=== PATIENT | female | born 1975 | race African-American/Black ===

== ENCOUNTER → 2018-05-04 | Outpatient (CLI) | payer OTHER ==
--- NOTE | 2018-05-14 16:40 | REP ---
BILATERAL MAMMOGRAM: Bilateral mammography is performed in the MLO and CC projections and compared to prior study of 10/06/2016. There is a history of breast cancer in paternal grandmother over age 50. Janine Hui lifetime risk of breast cancer is 16.1%. There is moderately dense fibroglandular tissue diffusely in a heterogeneous pattern. There appears to be a 6 mm well-circumscribed nodule near the left nipple, just inferior to it. No other definite mass is seen. No clustered microcalcifications are seen. IMPRESSION: Suspect well-circumscribed nodule in the left breast just below the nipple anteriorly measuring about 6 mm in diameter. Recommend spot compression views and ultrasound to further evaluate. ACR 0 incomplete. BI-RADS/ACR category 0 mammogram, incomplete. Additional imaging and/or prior mammograms for comparison. This mammogram was interpreted with the aid of an FDA-approved computer-aided detection system. The patient states she/he has not had a clinical breast exam in over a year. The patient letter being requested is M0. Electronically Signed by Eugenio Feng MD 05/20/2018 11:10 P
== END ==
LOC: M RAD 13:48
PROVIDERS: ATTEND Physician Assistant Medical
DX: R92.2 Inconclusive mammogram (principal); Z80.3 Family history of malignant neoplasm of breast

== ENCOUNTER → 2018-06-03 | Outpatient (CLI) | payer OTHER ==
--- NOTE | 2018-06-03 13:37 | REP ---
Digital diagnostic unilateral left breast mammography with CAD: History: Screening mammography from May 04, 2018 was BIRADS category zero because of a well-circumscribed nodule in the subareolar zone of the left breast on mammography. Comparison is also made with the October 06, 2016 prior study. Technologist notes that there is a skin tag in the subareolar region of the left breast and this was marked with a skin marker. The patient relates that this skin tag has always been present. Mammographic findings: The well circumscribed 6 mm nodule seen on the May 04, 2018 prior mammography is due to the above mentioned skin tag and is seen within the skin tag meter operator on all three of the magnified focal spot compression CC, ML and true MLO views. This is felt to be a benign dermal lesion. No other suspicious mammographic finding. Impression: BIRADS category II benign findings. Repeat screening mammography is recommended bilaterally in 1 year. This mammogram was interpreted with the aid of an FDA-approved computer-aided detection system. The patient states that she has not had a clinical breast exam in over a year. The patient letter being requested is M1. This patient's estimated Tyrer-Cuzick lifetime risk assessment for the breast cancer is 16.1 %. Electronically Signed by Franko Lamb MD 06/03/2018 06:08 P
== END ==
LOC: M RAD 10:51
PROVIDERS: ATTEND Physician Assistant Medical
DX: L91.8 Other hypertrophic disorders of the skin (principal)

== ENCOUNTER → 2019-07-19 | Outpatient (CLI) | payer OTHER ==
--- NOTE | 2019-07-19 13:35 | REPMRS ---
Patient History The patient states she has not had a clinical breast exam in over a year. Family history of pancreatic cancer at age 58 in father, breast cancer at age 50 or over in paternal grandmother, unknown cancer at age 70 in paternal grandfather, unknown cancer at age 50 in paternal uncle, colorectal cancer at age 38 in paternal cousin. Digital Woman Screen Mammo: July 19, 2019 - Exam #: [id number] Bilateral CC and MLO view(s) were taken. Technologist: Danielle Yusuf, Technologist Prior study comparison: June 03, 2018, left breast digital mammo diagnostic unilateral, performed at [facility]. May 04, 2018, bilateral digital mammo screening bilat, performed at [facility]. October 06, 2016, bilateral digital woman screen mammo, performed at [facility]. FINDINGS: The breast tissue is heterogeneously dense. This may lower the sensitivity of mammography. A skin company marker is again noted in the periareolar region on the left. There is a moderate amount of heterogeneously dense fibroglandular tissue which is fairly symmetric. There is no interval development of dominant mass, architectural distortion, or grouped microcalcification typical of malignancy. There has been no change in the appearance of the mammogram from the prior studies. 3-D tomosynthesis shows no additional findings. Assessment: BI-RADS/ACR category 2 mammogram. Benign Findings. Recommendation Routine screening mammogram of both breasts in 1 year (for women over age 40). This patient's Lifetime Breast Cancer RIsk is estimated at 15.7 %. This mammogram was interpreted with the aid of an FDA-approved computer-aided dectection system. Electronically Signed By: Armand Lamb MD 07/19/19 [id number]
== END ==
LOC: M WHC 10:03
PROVIDERS: ATTEND Physician Assistant
DX: Z12.31 Encounter for screening mammogram for malignant neoplasm of breast (principal)

== ENCOUNTER → 2020-04-24 | Outpatient (CLI) | payer SELFPAY | LOC: M LABSMTC 13:45 | PROVIDERS: ATTEND Pediatrics | DX: Z11.59 Encounter for screening for other viral diseases (principal) ==

== ENCOUNTER → 2020-07-23 | Outpatient (CLI) | payer OTHER ==
--- NOTE | 2020-07-23 13:12 | REPMRS ---
Patient History The patient states she has not had a clinical breast exam in over a year. Family history of pancreatic cancer at age 58 in father, breast cancer at age 50 or over in paternal grandmother, unknown cancer at age 70 in paternal grandfather, unknown cancer at age 50 in paternal uncle, colorectal cancer at age 38 in paternal cousin. 3D TOMOSYNTHESIS WAS PERFORMED. [facility] lifetime risk for breast cancer is 15.5%. Volpara breast density c. Digital Woman Screen Mammo: July 23, 2020 - Exam #: [id number] Bilateral CC and MLO view(s) were taken. Technologist: Erica Hendrickson, Technologist Prior study comparison: July 19, 2019, bilateral digital woman screen mammo performed at [facility]. June 03, 2018, left breast digital mammo diagnostic unilateral, performed at [facility]. FINDINGS: The breast tissue is heterogeneously dense. This may lower the sensitivity of mammography. There has been no change in the appearance of the mammogram from the prior studies. There is a moderate amount of residual fibroglandular tissue which is fairly symmetric. There is no interval development of dominant mass, areas of architectural distortion, or clustered microcalcification typical of malignancy. Assessment: BI-RADS/ACR category 1 mammogram. Negative Mammogram. Recommendation Routine screening mammogram in 1 year (for women over age 40). This mammogram was interpreted with the aid of an FDA-approved computer-aided dectection system. Electronically Signed By: Eugenio Feng MD 07/23/20 [id number]
== END ==
LOC: M WHC 12:16
PROVIDERS: ATTEND Nurse Practitioner Adult Health
DX: Z12.31 Encounter for screening mammogram for malignant neoplasm of breast (principal); Z80.9 Family history of malignant neoplasm, unspecified